=== PATIENT | male | born 1950 | race Caucasian/White ===

== ENCOUNTER 2017-09-05 14:33 | Emergency (ER) | payer OTHER ==
[~2017-09-05] VITALS: Ht 172.7 cm; Wt 107.0 kg
[2017-09-05 14:41] VITALS: TEMP 36.7; Ht 172.7 cm; Wt 107.0 kg
[2017-09-05] MEDS ORDERED: DIAZEPAM INJ 5 MG/ML 2 ML CARP IV STA (14:46)
[2017-09-05] MEDS ORDERED: SODIUM CHLORIDE 0.9% 1000ML 1,000 ML IV STA (14:46)
[2017-09-05] MEDS ORDERED: GLUCAGON INJ 1 MG in SYRINGE 0 ML IV STA (14:46)
[2017-09-05] MEDS ORDERED: METOCLOPRAMIDE HCL INJ 5 MG/ML 2 ML VIAL IV STA (14:46)
[2017-09-05] MEDS ORDERED: NITROGLYCERIN 2% OINTMENT 30GM TUBE EXT STA (14:46)
--- NOTE | 2017-09-05 14:55 | EMERGENCY ROOM VISIT NOTE ---
History Report prepared by Leon: Brooks Mckee Under the Supervision of: Dr. Toby Yuan M.D. First contact with patient: 14:46 Chief Complaint: FOOD BOLUS Stated Complaint: FOOD BOLUS Nursing Triage Summary: PT HERE WITH FEELING OF SOMETHING STUCK IN THROAT. PT WAS EATING A HAMBURGER AND COUGHED AND CHOKED ON A PIECE, NOW PT FEELS SOMETHING IS IN HIS THROAT. PT STATES THIS HAPPENED BEFORE WHILE EATING CHICKEN AND HAD TO BE SCOPED TO PUSH IT THROUGH ATTEMPTED TO SWALLOW WATER, COULD NOT History of Present Illness The patient is a 67 year old male with a history of a food bolus who presents to the Emergency Room with complaints of a persistent food bolus that started prior to arrival this afternoon. He states that he was eating a hamburger, and coughed, and choked on a piece of the food. The patient says that he still feels like it is stuck in his throat, and everything is coming back up when he drinks. He is also spitting up his own saliva. The patient states that a similar episode occurred 5 years ago, and he had to be scoped to push it through. He has followed-up with gastroenterology in [place], where he is from. Source of History: patient Onset: Prior to arrival this afternoon Position: throat Symptom Intensity: cannot drink, spitting up own saliva Quality: other (food bolus) Timing: other (persistent) Note: Associated symptoms: Throat pain. Review of Systems See HPI for pertinent positives & negatives. A total of 10 systems reviewed and were otherwise negative. Past Medical & Surgical Medical Problems: (1) Choking episode (2) No pertinent past medical history Family History No pertinent family history Social History Smoking Status: Never Smoker Smokeless Tobacco Use: No Drug Use: none Housing Status: lives with family Current/Historical Medications Scheduled Aspirin (Aspirin Ec), 81 MG PO DAILY Atorvastatin (Lipitor), 40 MG PO DAILY Bisoprolol Fumarate (Zebeta), 5 MG PO DAILY Isosorbide Mononitrate Ext Rel (Imdur Ext Rel), 60 MG PO QAM Scheduled PRN Nitroglycerin (Nitrostat), 0.4 MG UT UD PRN for Chest Pain Allergies Coded Allergies: Penicillins (Verified Allergy, Unknown, Unknown, 09/05/17) As a child Physical Exam Vital Signs Date Time Temp Pulse Resp B/P (MAP) Pulse Ox O2 Delivery O2 Flow Rate FiO2 4/8/18 16:23 65 18 126/66 94 09/05/17 14:41 36.7 68 18 163/109 94 Room Air Physical Exam GENERAL: Awake, alert, well-appearing, in no acute distress. Spitting out his own saliva. HENT: Normocephalic, atraumatic. Oropharynx unremarkable. EYES: Normal conjunctiva. Sclera non-icteric. NECK: Supple. No nuchal rigidity. FROM. No JVD. RESPIRATORY: Clear to auscultation. CARDIAC: Regular rate, normal rhythm. Extremities warm and well perfused. Pulses equal. ABDOMEN: Soft, non-distended. No tenderness to palpation. No rebound or guarding. No masses. RECTAL: Deferred. MUSCULOSKELETAL: Chest examination reveals no tenderness. The back is symmetrical on inspection without obvious abnormality. There is no CVA tenderness to palpation. No joint edema. LOWER EXTREMITIES: Calves are equal size bilaterally and non-tender. No edema. No discoloration. NEURO: Normal sensorium. No sensory or motor deficits noted. SKIN: No rash or jaundice noted. Medical Decision & Procedures Medications Administered Medications (Trade) Dose Ordered Sig/Ofelia Route Start Time Stop Time Status Last Admin Dose Admin Metoclopramide HCl (Reglan Inj) 10 mg NOW STAT IV 09/05/17 14:46 09/05/17 14:49 DC 09/05/17 15:10 10 MG Nitroglycerin (Nitroglycerin 2% Oint) 1 inch NOW STAT EXT 09/05/17 14:46 09/05/17 14:49 DC 09/05/17 15:10 1 [facility] ED Course 1446: Nitroglycerin 2% Oint 1 inch EXT, Reglan Inj 10 mg IV, Valium Inj 5 mg IV , NSS 1000 ml @ 999 mls/hr IV. 1449: Past medical records reviewed. The patient was evaluated in room A2. A complete history and physical examination was performed. 1505: Glucagon Inj 1 mg SQ. 1522: I reevaluated the patient and he is going to try water and will see if he can keep it down. 1548: The patient drank 2 glasses of water and is feeling better. 1559: Upon reexamination the patient is resting comfortably. I discussed results and treatment plan with the patient. He verbalizes agreement and understanding. The patient is ready for discharge. Medical Decision Differential diagnosis: Food bolus. This is a 67-year-old male who presents emergency department being unable to swallow his own saliva after eating meat. An IV was established, the patient was given Reglan, glucagon, Nitropaste as well as valium. Repeat evaluation revealed much improvement the patient's symptoms. The patient was able to tolerate 2 glasses of water here in the emergency department and based on this I feel the patient can be safely discharged home. Patient was in agreement with the treatment plan. Medication Reconcilliation Current Medication List: was personally reviewed by me Blood Pressure Screening Patient's blood pressure: Elevated blood pressure Blood pressure disposition: Elevated BP felt to be situational Impression Primary Impression: Achalasia of esophagus Scribe Attestation The scribe's documentation has been prepared under my direction and personally reviewed by me in its entirety. I confirm that the note above accurately reflects all work, treatment, procedures, and medical decision making performed by me. Departure Information Dispostion Home / Self-Care Referrals No Doctor, Assigned Patient Instructions Diet Clear Liquid Dc, ED Foreign Body Esophageal Rslv, [facility] Additional Instructions Need follow up with Gastroenterology Clear liquid diet next 48 hours You have been examined and treated today on an emergency basis only. This is not a substitute for, or an effort to provide, complete comprehensive medical care. It is impossible to recognize and treat all injuries or illnesses in a single emergency department visit. It is therefore important that you follow up closely with your PCP. Call as soon as possible for an appointment. Thank you for your time and consideration. I look forward to speaking with you again soon. Please don't hesitate to call us if you have any questions.
[2017-09-05] MEDS ORDERED: GLUCAGON FOR INJ 1 MG VIAL SQ STA (15:05)
[2017-09-05] MEDS ORDERED: BISO5TAB3 PO (15:18)
[2017-09-05] MEDS ORDERED: ATOR-24 PO (15:18)
[2017-09-05] MEDS ORDERED: ISOS60TA25 PO (15:18)
[2017-09-05] MEDS ORDERED: ASPI81TA28 PO (15:18)
[2017-09-05] MEDS ORDERED: NTRGSL/4 UT (15:18)
[2017-09-05 16:23] VITALS: BP 126/66; PULSE 65; O2SAT 94
== END 2017-09-05 16:25 | disposition home or self-care (01) ==
LOC: C.EDA 14:35
DX: K22.0 Achalasia of cardia (principal); R13.10 Dysphagia, unspecified; Z79.82 Long term (current) use of aspirin; Z79.899 Other long term (current) drug therapy; Z88.0 Allergy status to penicillin